=== PATIENT | male | born 1970 | race Caucasian/White ===

== ENCOUNTER 2020-07-03 10:13 | Outpatient (CLI) | payer BC, SELFPAY ==
[2020-07-03 10:52] LABS: Chol HDL Ratio 3.25 mg/dL (1.0-5.00); Cholesterol 130 mg/dL (0-200); HDL Cholesterol 40 mg/dL (60-100); LDL Cholesterol Calculated 67 mg/dL (50-129); LDL HDL Ratio 1.68 RATIO (0.00-3.22); Triglycerides 113 mg/dL (0-150)
[2020-07-03 13:24] LABS: Estmated Average Glucose 197; Hemoglobin A1C 8.5 % (4.0-6.0)
== END 2020-07-03 10:14 | disposition home or self-care (01) ==
LOC: LAB 10:21
PROVIDERS: Visit Provider Internal Medicine
DX: E10.319 Type 1 diabetes mellitus with unspecified diabetic retinopathy without macular edema (principal); E78.00 Pure hypercholesterolemia, unspecified; I10 Essential (primary) hypertension
CPT/HCPCS: 36415; 80061; 83036; 99204

== ENCOUNTER 2020-10-02 09:46 | Outpatient (CLI) | payer BC, SELFPAY ==
[2020-10-02 10:31] LABS: Estmated Average Glucose 177; Hemoglobin A1C 7.8 % (4.0-6.0)
== END 2020-10-02 09:47 | disposition home or self-care (01) ==
LOC: RAD 09:50 → LAB 09:50
PROVIDERS: PCP Student in an Organized Health Care Education/Training Program; Visit Provider Internal Medicine
DX: E11.319 Type 2 diabetes mellitus with unspecified diabetic retinopathy without macular edema (principal); E78.00 Pure hypercholesterolemia, unspecified; I10 Essential (primary) hypertension
CPT/HCPCS: 83036; 95251; 99215

== ENCOUNTER → 2021-07-30 08:52 | Outpatient (BNVA) | payer BC, SELFPAY | PROVIDERS: PCP Student in an Organized Health Care Education/Training Program; Visit Provider Internal Medicine | DX: E10.649 Type 1 diabetes mellitus with hypoglycemia without coma (principal); E10.319 Type 1 diabetes mellitus with unspecified diabetic retinopathy without macular edema; E78.00 Pure hypercholesterolemia, unspecified; Z46.81 Encounter for fitting and adjustment of insulin pump; Z79.84 Long term (current) use of oral hypoglycemic drugs | CPT/HCPCS: 99214 ==